=== PATIENT | male | born 1995 | race Hispanic/Latino ===

== ENCOUNTER 2018-08-31 14:09 | Emergency (ER) | payer OTHER | END 2018-08-31 15:45 | disposition home or self-care (01) | LOC: EDH 14:09 | DX: S92.422A Displaced fracture of distal phalanx of left great toe, initial encounter for closed fracture (principal); J45.909 Unspecified asthma, uncomplicated; W20.8XXA Other cause of strike by thrown, projected or falling object, initial encounter; Y93.89 Activity, other specified; Y92.098 Other place in other non-institutional residence as the place of occurrence of the external cause; Y99.8 Other external cause status | CPT/HCPCS: 73660 ==